=== PATIENT | female | born 1990 | race African-American/Black ===

== ENCOUNTER 2017-07-11 19:20 | Emergency (ER) | payer MEDICAID ==
[~2017-07-11] VITALS: Ht 162.6 cm; Wt 63.0 kg
[2017-07-11 19:31] VITALS: BP 113/73
== END 2017-07-12 02:05 | disposition left against medical advice (07) ==
LOC: ER 19:59
DX: Z53.21 Procedure and treatment not carried out due to patient leaving prior to being seen by health care provider (principal)
CPT/HCPCS: 93005

== ENCOUNTER 2023-11-30 03:49 | Emergency (ER) | payer MEDICAID ==
[~2023-11-30] VITALS: Ht 165.1 cm; Wt 59.0 kg
[2023-11-30 04:00] VITALS: BP 115/75; PULSE 62; RESP 16; TEMP 98.1; O2SAT 100
[2023-11-30] MEDS ORDERED: CLIN-194 PO (05:50)
== END 2023-11-30 05:56 | disposition home or self-care (01) ==
LOC: ER 05:00
DX: L02.512 Cutaneous abscess of left hand (principal); F12.10 Cannabis abuse, uncomplicated; Z88.0 Allergy status to penicillin
CPT/HCPCS: 73130; 99283

== ENCOUNTER 2023-12-19 21:50 | Emergency (ER) | payer MEDICAID ==
[~2023-12-19] VITALS: Ht 162.6 cm; Wt 59.0 kg
[~2023-12-19 21:50] MED LIST: CLIN-194 PO
[2023-12-19 21:57] VITALS: O2SAT 100
[2023-12-20] MEDS ORDERED: DOXY100C5 MT (02:02)
[2023-12-20] MEDS: CEFTRIAXONE SODIUM 500MG VIAL IM ONE (02:20)
[2023-12-20 02:21] VITALS: BP 119/69; PULSE 70; RESP 18; TEMP 98
== END 2023-12-20 02:22 | disposition home or self-care (01) ==
LOC: ER 21:50
DX: A64 Unspecified sexually transmitted disease (principal); F12.10 Cannabis abuse, uncomplicated
CPT/HCPCS: 99283; 96372; J0696